=== PATIENT | male | born 1975 | race Caucasian/White ===

== ENCOUNTER 2016-04-17 09:37 | Emergency (ER) | payer OTHER ==
[~2016-04-17 09:37] MED LIST: NEXI40CA PO; QUES4POW PO; VARE1TA PO
[2016-04-17] MEDS ORDERED: NORCO, ANEXSIA 5/325MG TABLET (HYDROcodone/ACETAMINOPHEN) As Ordered ONE (10:10)
--- NOTE | 2016-04-17 11:11 | REP ---
LUMBAR SPINE COMPLETE: 04/17/2016. Comparison: 08/24/2010. Clinical history: Trauma. The five views show pedicles, spinous and transverse processes in the lumbar spine intact. Sacral ala, foramina, SI joints, pelvic rim and visualized portions of the pubic symphysis and rami were intact. Hips only seen in part and symmetric. Lower thoracic levels and visualized ribs intact. The lateral view shows slight loss of lordosis that may reflect some spasm. The disc space heights are intact throughout. There is no compression deformity. There are small marginal osteophytes at L2-3 and L3-4 as well as in the lower thoracic region. No destructive bone lesion, spondylolysis or spondylolisthesis. Impression: 1. Minimal straightening of the spine that may reflect some spasm with small marginal osteophytes in the mid and upper lumbar region. No compression fracture, spondylolysis, spondylolisthesis or other acute finding. Signed by John Mendes MD 04/17/2016 04:21 P
--- NOTE | 2016-04-17 11:12 | REP ---
AP PELVIS AND LEFT HIP, TWO VIEWS: 04/17/2016. Clinical history: Trauma. Fell downstairs with back and left hip pain. No prior study. Findings: SI joints, sacral ala and foramina symmetric and normal. Iliac wings intact. Hip joint space is preserved. I do not see significant degenerative changes of the hips. There is no AVN or fracture of either hip. Pelvic ring intact. SI joints, symphysis pubis, pubic rami all unremarkable. The AP and frog-leg views of the hip show no hip joint space narrowing, osteophytes or destructive lesion. Impression: 1. Negative AP pelvis and left hip series. Signed by John Mendes MD 04/17/2016 04:21 P
--- NOTE | 2016-04-17 12:05 | EDDOCDS ---
Nurse's Notes [facility] Name: Aleksander Lopez Age: 40 yrs Sex: Male : 1975 Arrival Date: 04/17/2016 Time: 09:37 Bed PR Private MD: Con Nash MD Diagnosis: Fall on and from stairs and steps;Contusion of lower back and pelvis-left Presentation: 04/17 09:44 Presenting complaint: Patient states: "I fell down the stairs outside." Spouse reports ead approx 5 stairs. Pt unsure if he hit his head. Pt c/o lower back pain and left leg pain. Adult Sepsis Screening: The patient does not have new or worsening altered mentation. Patient's respiratory rate is less than 22. Systolic blood pressure is greater than 100. Patient has a qSOFA score of 0- Negative Sepsis Screen. Suicide/Homicide risk assessment- the patient denies having any suicidal and/or homicidal ideations and does not present with any other emotional, behavioral or mental health complaints. 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 Transition of care: patient was not received from another setting of care. 09:44 Acuity: DAMIEN Level 4 ead 09:44 Method Of Arrival: Wheelchair ead 09:47 Presenting complaint: states: reports incident occurred at approx 0800 this ead morning. Triage Assessment: 09:46 General: Appears in no apparent distress, Behavior is appropriate for age, cooperative. ead General: Appears uncomfortable. Pain: Location: back and left leg. Pain: Pain currently is 10 out of 10 on a pain scale. HIV screening NA for this visit Offered previously. Neurological: Level of Consciousness is awake, alert, obeys commands, Oriented to person, place, time. Respiratory: Airway is patent Respiratory effort is even, unlabored. Derm: Skin is pink, warm & dry. Musculoskeletal: Reports pain in back and left leg. Historical: - Allergies: Codeine Sulfate (Upset stomach); - Home Meds: 1. cholestyramine (with sugar) 4 gram oral powd 1 scoop daily - PMHx: Hiatal Hernia; - PSHx: Cholecystectomy; Appendectomy; - Social history: Smoking status: Patient uses tobacco products, current every day smoker. No barriers to communication noted, The patient speaks fluent Vietnamese, Speaks appropriately for age. - Family history: Not pertinent. - : The pt / caregiver states he / she is not on anticoagulants. Home medication list is obtained from the patient. - Exposure Risk Screening:: None identified. Screenin:16 Screening information is obtained from the patient. Fall risk: No risks identified. jjr Assistance ADL's: requires no assistance with activities of daily living. Abuse/DV Screen: The patient / caregiver reports he/she is: not in a situation that causes fear, pain or injury. Nutritional screening: No deficits noted. Advance Directives: There is no active DNR order. home support is adequate. Assessment: 10:15 General: Appears uncomfortable, Behavior is appropriate for age. Pain: Location: lumbar jjr area, sacrum and left hip Pain radiates to left femoral area Aggravated by increased activity, repositioning, Noted to be grimacing, resistant to movement. Neurological: No deficits noted. Respiratory: No deficits noted. Derm: No deficits noted. 12:02 General: Appears in no apparent distress, Behavior is appropriate for age, cooperative. ml6 Pain: Location: lumbar area Pain currently is 3 out of 10 on a pain scale. Pain does not radiate. Quality of pain is described as aching, Pain began 1 day ago Is continuous Alleviated by medications, rest, Aggravated by increased activity. Neurological: No deficits noted. Cardiovascular: No deficits noted. Capillary refill < 3 seconds is brisk in bilateral fingers toes. Respiratory: No deficits noted. Airway is patent Respiratory effort is even, unlabored, Respiratory pattern is regular, symmetrical, Breath sounds are clear bilaterally. GI: No deficits noted. Vital Signs: 09:38 BP 128 / 70; Pulse 93; Resp 18; Temp 97.5(O); Pulse Ox 99% on R/A; Weight 86.18 kg (R); dem1 Height 5 ft. 8 in. (172.72 cm) (R); Pain 10/10; 12:03 BP 140 / 89; Pulse 78; Resp 18; Temp 97.7(O); Pulse Ox 97% on R/A; Pain 3/10; ml6 09:38 Body Mass Index 28.89 (86.18 kg, 172.72 cm) dem1 12:03 provider aware of patients pain ml6 Vitals: 09:38 Log In Time: April 17, 2016 at 09:36. dem1 ED Course: 09:38 Patient visited by Shahla Paulino. dem1 09:38 Con Nash is Private Physician. dem1 09:38 Patient moved to Waiting dem1 09:39 Patient moved to Pre RCE dem1 09:45 Triage Initiated ead 09:58 Patient moved to Triage 3 ead 09:59 Abilio Beltran PA-C is PHCP. ar2 09:59 Amirah Devine MD is Attending Physician. ar2 09:59 Patient visited by Abilio Beltran PA-C. ar2 10:15 Patient moved to TR1 jjr 10:16 Patient visited by Shayna Donahue RN. jjr 10:16 The patient / caregiver is instructed regarding the plan of care and ED course. jjr 10:27 [facility] Payment Agreement was scanned into [employer] and attached to record. jp5 11:07 Patient moved to PR1 / 25 jlf 11:12 Patient visited by Kate France PCA. ar3 11:21 Spine. Lumbosacral, Complete Returned. EDMS 11:21 Hip,AP,LAT to include Pelvis Returned. EDMS 11:47 Con Nash is Referral Physician. ar2 12:03 No IV's were initiated during this patient's visit. No procedures done that require ml6 assistance. Administered Medications: 10:15 Drug: HYDROcodone-acetaminophen 1 tabs [hydrocodone 5 mg-acetaminophen 325 mg tablet (1 jjr tabs)] Route: PO; Order Results: Radiology Order: Spine. Lumbosacral, Complete Test: Spine. Lumbosacral, Complete REASON FOR EXAMINATION: Trauma; Lumbar spine complete: 04/17/2016:; ; Comparison: 08/24/2010.; ; Clinical history: Trauma.; ; The five views show pedicles, spinous and transverse processes in the lumbar; spine intact. Sacral ala, foramina, SI joints, pelvic rim and visualized; portions of the pubic symphysis and rami were intact. Hips only seen in part and; symmetric. Lower thoracic levels and visualized ribs intact. The lateral view; shows slight loss of lordosis that may reflect some spasm. The disc space; heights are intact throughout. There is no compression deformity. There are; small marginal osteophytes at L2-3 and L3-4 as well as in the lower thoracic; region. No destructive bone lesion, spondylolysis or spondylolisthesis.; ; Impression:; 1. Minimal straightening of the spine that may reflect some spasm with small; marginal osteophytes in the mid and upper lumbar region. No compression; fracture, spondylolysis, spondylolisthesis or other acute finding.; ; ; ; ; Unreviewed; Radiology Order: Hip,AP,LAT to include Pelvis Test: Hip,AP,LAT to include Pelvis REASON FOR EXAMINATION: Trauma; AP PELVIS AND LEFT HIP, TWO VIEWS: 04/17/2016.; ; Clinical history: Trauma. Fell downstairs with back and left hip pain.; ; No prior study.; ; Findings: SI joints, sacral ala and foramina symmetric and normal. Iliac wings; intact. Hip joint space is preserved. I do not see significant degenerative; changes of the hips. There is no AVN or fracture of either hip. Pelvic ring; intact. SI joints, symphysis pubis, pubic rami all unremarkable. The AP and; frog-leg views of the hip show no hip joint space narrowing, osteophytes or; destructive lesion.; ; Impression:; 1. Negative AP pelvis and left hip series.; ; ; ; ; ; ; Unreviewed; Outcome: 11:48 Discharge ordered by Provider. ar2 12:03 Discharge Assessment: patient administered narcotics - no. The following High Risk ml6 Discharge criteria are identified: None. Discharged to home ambulatory, with significant other. Condition: stable. Discharge instructions given to patient, Instructed on discharge instructions, follow up and referral plans. medication usage, Demonstrated understanding of instructions, medications, Pt was receptive of discharge instructions/ teaching. Prescriptions given X 2. No special radiology studies were completed. Property :Personal belongings accompany Pt. 12:04 Patient left the ED. ml6 Signatures: Dispatcher [employer] EDMS Shayna Donahue RN RN Abilio Mcgee PA-C PA-C ar2 Dung Da Silva RN RN ml6 Kate France, [employer]IAN ar3 Shahla Paulino dem1 Latoya Graff, [employer] duyf Amelia ScottRN RN Chanda Buitrago jp5 Corrections: (The following items were deleted from the chart) 12:03 11:12 BP 140 / 89; Pulse 78bpm; Resp 18bpm; Pulse Ox 97% RA; Temp 97.7F Oral; Pain ml6 10/10; provider aware of patients pain; ar3 12:03 12:03 BP 140 / 89; Pulse 78bpm; Resp 18bpm; Pulse Ox 97% RA; Temp 97.7F Oral; Pain ml6 10/10; provider aware of patients pain; ml6 MTDD
--- NOTE | 2016-04-17 12:05 | EDDOCDS ---
Physician Documentation [facility] Name: Aleksander Lopez Age: 40 yrs Sex: Male : 1975 Arrival Date: 04/17/2016 Time: 09:37 Bed PR Private MD: Con Nash MD Disposition: 04/17/16 11:48 Discharged to Home/Self Care. Impression: Fall on and from stairs and steps, Contusion of lower back and pelvis - left. - Condition is Stable. - Discharge Instructions: Back Pain, Adult, Contusion. - Prescriptions for Ibuprofen 800 mg Oral Tablet - take 1 tablet by ORAL route every 8 hours As needed take with food; 30 tablet. Ultram 50 mg Oral Tablet - take 1 tablet by ORAL route every 6 hours As needed MDD: 4 tabs; 20 tablet. - Work Release Form - 3 day, Medication Reconciliation, Local Pharmacy Hours form. - Follow up: Con Nash; When: 1 week; Reason: Recheck today's complaints. Follow up: Emergency Department; When: As needed; Reason: Worsening of conditions, severe pain, numbness/weakness in the legs. - Problem is new. - Symptoms are unchanged. Historical: - Allergies: Codeine Sulfate (Upset stomach); - Home Meds: 1. cholestyramine (with sugar) 4 gram oral powd 1 scoop daily - PMHx: Hiatal Hernia; - PSHx: Cholecystectomy; Appendectomy; - Social history: Smoking status: Patient uses tobacco products, current every day smoker. No barriers to communication noted, The patient speaks fluent Hebrew, Speaks appropriately for age. - Family history: Not pertinent. - : The pt / caregiver states he / she is not on anticoagulants. Home medication list is obtained from the patient. - Exposure Risk Screening:: None identified. Vital Signs: 04/17 09:38 BP 128 / 70; Pulse 93; Resp 18; Temp 97.5(O); Pulse Ox 99% on R/A; Weight 86.18 kg / dem1 189.99 lbs (R); Height 5 ft. 8 in. (172.72 cm) (R); Pain 10/10; 12:03 BP 140 / 89; Pulse 78; Resp 18; Temp 97.7(O); Pulse Ox 97% on R/A; Pain 3/10; ml6 09:38 Body Mass Index 28.89 (86.18 kg, 172.72 cm) dem1 12:03 provider aware of patients pain ml6 MDM: 10:06 HYDROcodone-acetaminophen 5 mg-325 mg 1 tabs PO once ordered. ar2 10:07 Spine. Lumbosacral, Complete Ordered. EDMS 10:07 Hip,AP,LAT to include Pelvis Ordered. EDMS 10:27 [facility] Payment Agreement was scanned into [employer] and attached to record. jp5 10:27 Financial registration complete. jp5 Administered Medications: 10:15 Drug: HYDROcodone-acetaminophen 1 tabs [hydrocodone 5 mg-acetaminophen 325 mg tablet (1 jjr tabs)] Route: PO; Signatures: Dispatcher [employer] EDMS Abilio Beltran PA-C PA-C ar2 Dung Da Silva RN RN ml6 Amelia ScottRN RN Chanda Buitrago jp5 Shayna Donahue RN jjr The chart was reviewed and I authenticate all verbal orders and agree with the evaluation and treatment provided.Attachments: 10:27 [facility] Payment Agreement jp5 MTDD
--- NOTE | 2016-04-19 13:04 | EDDOCDS ---
Physician Documentation [facility] Name: Aleksander Lopez Age: 40 yrs Sex: Male : 1975 Arrival Date: 04/17/2016 Time: 09:37 Bed PR Private MD: Con Nash MD Disposition: 04/17/16 11:48 Discharged to Home/Self Care. Impression: Fall on and from stairs and steps, Contusion of lower back and pelvis - left. - Condition is Stable. - Discharge Instructions: Back Pain, Adult, Contusion. - Prescriptions for Ibuprofen 800 mg Oral Tablet - take 1 tablet by ORAL route every 8 hours As needed take with food; 30 tablet. Ultram 50 mg Oral Tablet - take 1 tablet by ORAL route every 6 hours As needed MDD: 4 tabs; 20 tablet. - Work Release Form - 3 day, Medication Reconciliation, Local Pharmacy Hours form. - Follow up: Con Nash; When: 1 week; Reason: Recheck today's complaints. Follow up: Emergency Department; When: As needed; Reason: Worsening of conditions, severe pain, numbness/weakness in the legs. - Problem is new. - Symptoms are unchanged. Historical: - Allergies: Codeine Sulfate (Upset stomach); - Home Meds: 1. cholestyramine (with sugar) 4 gram oral powd 1 scoop daily - PMHx: Hiatal Hernia; - PSHx: Cholecystectomy; Appendectomy; - Social history: Smoking status: Patient uses tobacco products, current every day smoker. No barriers to communication noted, The patient speaks fluent Mohawk, Speaks appropriately for age. - Family history: Not pertinent. - : The pt / caregiver states he / she is not on anticoagulants. Home medication list is obtained from the patient. - Exposure Risk Screening:: None identified. Vital Signs: 04/17 09:38 BP 128 / 70; Pulse 93; Resp 18; Temp 97.5(O); Pulse Ox 99% on R/A; Weight 86.18 kg / dem1 189.99 lbs (R); Height 5 ft. 8 in. (172.72 cm) (R); Pain 10/10; 12:03 BP 140 / 89; Pulse 78; Resp 18; Temp 97.7(O); Pulse Ox 97% on R/A; Pain 3/10; ml6 09:38 Body Mass Index 28.89 (86.18 kg, 172.72 cm) dem1 12:03 provider aware of patients pain ml6 MDM: 10:06 HYDROcodone-acetaminophen 5 mg-325 mg 1 tabs PO once ordered. ar2 10:07 Spine. Lumbosacral, Complete Ordered. EDMS 10:07 Hip,AP,LAT to include Pelvis Ordered. EDMS 10:27 [facility] Payment Agreement was scanned into [employer] and attached to record. jp5 10: Financial registration complete. jp5 14:00 T-Sheet-- Draft Copy was scanned into [employer] and attached to record. klr 14:35 Radiology Report was scanned into [employer] and attached to record. gb Administered Medications: 10:15 Drug: HYDROcodone-acetaminophen 1 tabs [hydrocodone 5 mg-acetaminophen 325 mg tablet (1 jjr tabs)] Route: PO; Signatures: Dispatcher [employer] EDMS Daphnie Hadley, Reg Reg gb Abilio Beltran, PA-C PA-C ar2 Dung Da Silva, RN RN ml6 Amelia ScottRN RN Chanda Buitrago jp5 Koki Rubin klr Shayna Donahue RN jjr The chart was reviewed and I authenticate all verbal orders and agree with the evaluation and treatment provided.Attachments: 10: [facility] Payment Agreement jp5 14:00 T-Sheet-- Draft Copy klr Chart Complete MTDD
--- NOTE | 2016-04-19 13:04 | EDDOCDS ---
Physician Documentation [facility] Name: Aleksander Lopez Age: 40 yrs Sex: Male : 1975 Arrival Date: 04/17/2016 Time: 09:37 Bed PR Private MD: Con Nash MD Disposition: 04/17/16 11:48 Discharged to Home/Self Care. Impression: Fall on and from stairs and steps, Contusion of lower back and pelvis - left. - Condition is Stable. - Discharge Instructions: Back Pain, Adult, Contusion. - Prescriptions for Ibuprofen 800 mg Oral Tablet - take 1 tablet by ORAL route every 8 hours As needed take with food; 30 tablet. Ultram 50 mg Oral Tablet - take 1 tablet by ORAL route every 6 hours As needed MDD: 4 tabs; 20 tablet. - Work Release Form - 3 day, Medication Reconciliation, Local Pharmacy Hours form. - Follow up: Con Nash; When: 1 week; Reason: Recheck today's complaints. Follow up: Emergency Department; When: As needed; Reason: Worsening of conditions, severe pain, numbness/weakness in the legs. - Problem is new. - Symptoms are unchanged. Historical: - Allergies: Codeine Sulfate (Upset stomach); - Home Meds: 1. cholestyramine (with sugar) 4 gram oral powd 1 scoop daily - PMHx: Hiatal Hernia; - PSHx: Cholecystectomy; Appendectomy; - Social history: Smoking status: Patient uses tobacco products, current every day smoker. No barriers to communication noted, The patient speaks fluent Nepali, Speaks appropriately for age. - Family history: Not pertinent. - : The pt / caregiver states he / she is not on anticoagulants. Home medication list is obtained from the patient. - Exposure Risk Screening:: None identified. Vital Signs: 04/17 09:38 BP 128 / 70; Pulse 93; Resp 18; Temp 97.5(O); Pulse Ox 99% on R/A; Weight 86.18 kg / dem1 189.99 lbs (R); Height 5 ft. 8 in. (172.72 cm) (R); Pain 10/10; 12:03 BP 140 / 89; Pulse 78; Resp 18; Temp 97.7(O); Pulse Ox 97% on R/A; Pain 3/10; ml6 09:38 Body Mass Index 28.89 (86.18 kg, 172.72 cm) dem1 12:03 provider aware of patients pain ml6 MDM: 10:06 HYDROcodone-acetaminophen 5 mg-325 mg 1 tabs PO once ordered. ar2 10:07 Spine. Lumbosacral, Complete Ordered. EDMS 10:07 Hip,AP,LAT to include Pelvis Ordered. EDMS 10:27 [facility] Payment Agreement was scanned into [employer] and attached to record. jp5 10: Financial registration complete. jp5 14:00 T-Sheet-- Draft Copy was scanned into [employer] and attached to record. klr 14:35 Radiology Report was scanned into [employer] and attached to record. gb Administered Medications: 10:15 Drug: HYDROcodone-acetaminophen 1 tabs [hydrocodone 5 mg-acetaminophen 325 mg tablet (1 jjr tabs)] Route: PO; Signatures: Dispatcher [employer] EDMS Daphnie Hadley, Reg Reg gb Abilio Beltran, PA-C PA-C ar2 Dung Da Silva, RN RN ml6 Amelia ScottRN RN Chanda Buitrago jp5 Koki Rubin klr Shayna Donahue RN jjr The chart was reviewed and I authenticate all verbal orders and agree with the evaluation and treatment provided.Attachments: 10: [facility] Payment Agreement jp5 14:00 T-Sheet-- Draft Copy klr Chart Complete MTDD
--- NOTE | 2016-04-19 13:04 | EDDOCDS ---
Nurse's Notes [facility] Name: Aleksander Lopez Age: 40 yrs Sex: Male : 1975 Arrival Date: 04/17/2016 Time: 09:37 Bed PR Private MD: Con Nash MD Diagnosis: Fall on and from stairs and steps;Contusion of lower back and pelvis-left Presentation: 04/17 09:44 Presenting complaint: Patient states: "I fell down the stairs outside." Spouse reports ead approx 5 stairs. Pt unsure if he hit his head. Pt c/o lower back pain and left leg pain. Adult Sepsis Screening: The patient does not have new or worsening altered mentation. Patient's respiratory rate is less than 22. Systolic blood pressure is greater than 100. Patient has a qSOFA score of 0- Negative Sepsis Screen. Suicide/Homicide risk assessment- the patient denies having any suicidal and/or homicidal ideations and does not present with any other emotional, behavioral or mental health complaints. 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 Transition of care: patient was not received from another setting of care. 09:44 Acuity: DAMIEN Level 4 ead 09:44 Method Of Arrival: Wheelchair ead 09:47 Presenting complaint: states: reports incident occurred at approx 0800 this ead morning. Triage Assessment: 09:46 General: Appears in no apparent distress, Behavior is appropriate for age, cooperative. ead General: Appears uncomfortable. Pain: Location: back and left leg. Pain: Pain currently is 10 out of 10 on a pain scale. HIV screening NA for this visit Offered previously. Neurological: Level of Consciousness is awake, alert, obeys commands, Oriented to person, place, time. Respiratory: Airway is patent Respiratory effort is even, unlabored. Derm: Skin is pink, warm & dry. Musculoskeletal: Reports pain in back and left leg. Historical: - Allergies: Codeine Sulfate (Upset stomach); - Home Meds: 1. cholestyramine (with sugar) 4 gram oral powd 1 scoop daily - PMHx: Hiatal Hernia; - PSHx: Cholecystectomy; Appendectomy; - Social history: Smoking status: Patient uses tobacco products, current every day smoker. No barriers to communication noted, The patient speaks fluent Kinyarwanda, Speaks appropriately for age. - Family history: Not pertinent. - : The pt / caregiver states he / she is not on anticoagulants. Home medication list is obtained from the patient. - Exposure Risk Screening:: None identified. Screenin:16 Screening information is obtained from the patient. Fall risk: No risks identified. jjr Assistance ADL's: requires no assistance with activities of daily living. Abuse/DV Screen: The patient / caregiver reports he/she is: not in a situation that causes fear, pain or injury. Nutritional screening: No deficits noted. Advance Directives: There is no active DNR order. home support is adequate. Assessment: 10:15 General: Appears uncomfortable, Behavior is appropriate for age. Pain: Location: lumbar jjr area, sacrum and left hip Pain radiates to left femoral area Aggravated by increased activity, repositioning, Noted to be grimacing, resistant to movement. Neurological: No deficits noted. Respiratory: No deficits noted. Derm: No deficits noted. 12:02 General: Appears in no apparent distress, Behavior is appropriate for age, cooperative. ml6 Pain: Location: lumbar area Pain currently is 3 out of 10 on a pain scale. Pain does not radiate. Quality of pain is described as aching, Pain began 1 day ago Is continuous Alleviated by medications, rest, Aggravated by increased activity. Neurological: No deficits noted. Cardiovascular: No deficits noted. Capillary refill < 3 seconds is brisk in bilateral fingers toes. Respiratory: No deficits noted. Airway is patent Respiratory effort is even, unlabored, Respiratory pattern is regular, symmetrical, Breath sounds are clear bilaterally. GI: No deficits noted. Vital Signs: 09:38 BP 128 / 70; Pulse 93; Resp 18; Temp 97.5(O); Pulse Ox 99% on R/A; Weight 86.18 kg (R); dem1 Height 5 ft. 8 in. (172.72 cm) (R); Pain 10/10; 12:03 BP 140 / 89; Pulse 78; Resp 18; Temp 97.7(O); Pulse Ox 97% on R/A; Pain 3/10; ml6 09:38 Body Mass Index 28.89 (86.18 kg, 172.72 cm) dem1 12:03 provider aware of patients pain ml6 Vitals: 09:38 Log In Time: April 17, 2016 at 09:36. dem1 ED Course: 09:38 Patient visited by Shahla Paulino. dem1 09:38 Con Nash is Private Physician. dem1 09:38 Patient moved to Waiting dem1 09:39 Patient moved to Pre RCE dem1 09:45 Triage Initiated ead 09:58 Patient moved to Triage 3 ead 09:59 Abilio Beltran PA-C is PHCP. ar2 09:59 Amirah Devine MD is Attending Physician. ar2 09:59 Patient visited by Abilio Beltran PA-C. ar2 10:15 Patient moved to TR1 jjr 10:16 Patient visited by Shayna Donahue RN. jjr 10:16 The patient / caregiver is instructed regarding the plan of care and ED course. jjr 10:27 [facility] Payment Agreement was scanned into Tile and attached to record. jp5 11:07 Patient moved to PR1 / 25 jlf 11:12 Patient visited by Kate France PCA. ar3 11:21 Spine. Lumbosacral, Complete Returned. EDMS 11:21 Hip,AP,LAT to include Pelvis Returned. EDMS 11:47 Con Nash is Referral Physician. ar2 12:03 No IV's were initiated during this patient's visit. No procedures done that require ml6 assistance. 14:00 T-Sheet-- Draft Copy was scanned into Tile and attached to record. klr 14:35 Radiology Report was scanned into Tile and attached to record. gb Administered Medications: 10:15 Drug: HYDROcodone-acetaminophen 1 tabs [hydrocodone 5 mg-acetaminophen 325 mg tablet (1 jjr tabs)] Route: PO; Order Results: Radiology Order: Spine. Lumbosacral, Complete Test: Spine. Lumbosacral, Complete REASON FOR EXAMINATION: Trauma; LUMBAR SPINE COMPLETE: 04/17/2016.; ; Comparison: 08/24/2010.; ; Clinical history: Trauma.; ; The five views show pedicles, spinous and transverse processes in the lumbar; spine intact. Sacral ala, foramina, SI joints, pelvic rim and visualized; portions of the pubic symphysis and rami were intact. Hips only seen in part and; symmetric. Lower thoracic levels and visualized ribs intact. The lateral view; shows slight loss of lordosis that may reflect some spasm. The disc space; heights are intact throughout. There is no compression deformity. There are; small marginal osteophytes at L2-3 and L3-4 as well as in the lower thoracic; region. No destructive bone lesion, spondylolysis or spondylolisthesis.; ; Impression:; ; 1. Minimal straightening of the spine that may reflect some spasm with small; marginal osteophytes in the mid and upper lumbar region. No compression; fracture, spondylolysis, spondylolisthesis or other acute finding.; ; ; Signed by; John Mendes MD 04/17/2016 04:21 P; Radiology Order: Hip,AP,LAT to include Pelvis Test: Hip,AP,LAT to include Pelvis REASON FOR EXAMINATION: Trauma; AP PELVIS AND LEFT HIP, TWO VIEWS: 04/17/2016.; ; Clinical history: Trauma. Fell downstairs with back and left hip pain.; ; No prior study.; ; Findings: SI joints, sacral ala and foramina symmetric and normal. Iliac wings; intact. Hip joint space is preserved. I do not see significant degenerative; changes of the hips. There is no AVN or fracture of either hip. Pelvic ring; intact. SI joints, symphysis pubis, pubic rami all unremarkable. The AP and; frog-leg views of the hip show no hip joint space narrowing, osteophytes or; destructive lesion.; ; Impression:; ; 1. Negative AP pelvis and left hip series.; ; ; ; ; Signed by; John Mendes MD 04/17/2016 04:21 P; Outcome: 11:48 Discharge ordered by Provider. ar2 12:03 Discharge Assessment: patient administered narcotics - no. The following High Risk ml6 Discharge criteria are identified: None. Discharged to home ambulatory, with significant other. Condition: stable. Discharge instructions given to patient, Instructed on discharge instructions, follow up and referral plans. medication usage, Demonstrated understanding of instructions, medications, Pt was receptive of discharge instructions/ teaching. Prescriptions given X 2. No special radiology studies were completed. Property :Personal belongings accompany Pt. 12:04 Patient left the ED. ml6 Signatures: Dispatcher [employer] EDMS Daphnie Hadley, Reg Reg Shayna Carlson RN RN jjAbilio Davenport PA-C PARamiro ar2 Dung Da Silav RN RN ml6 Kate France, PROFESSOR OF COMMUNICATION AND WRITING PROFESSOR OF COMMUNICATION AND WRITING ar3 Shahla Paulino dem1 Latoya Graff, PROFESSOR OF COMMUNICATION AND WRITING PROFESSOR OF COMMUNICATION AND WRITING jlf Amelia Scott,RN RN Chanda Buitrago 5 Koki Rubin Corrections: (The following items were deleted from the chart) 12:03 11:12 BP 140 / 89; Pulse 78bpm; Resp 18bpm; Pulse Ox 97% RA; Temp 97.7F Oral; Pain ml6 10/10; provider aware of patients pain; ar3 12:03 12:03 BP 140 / 89; Pulse 78bpm; Resp 18bpm; Pulse Ox 97% RA; Temp 97.7F Oral; Pain ml6 10/10; provider aware of patients pain; ml6 Chart Complete MTDD
== END 2016-04-17 12:04 | disposition home or self-care (01) ==
LOC: M ED 09:37
DX: S30.0XXA Contusion of lower back and pelvis, initial encounter (principal); W10.9XXA Fall (on) (from) unspecified stairs and steps, initial encounter; Y92.019 Unspecified place in single-family (private) house as the place of occurrence of the external cause; Y93.9 Activity, unspecified; Y99.9 Unspecified external cause status; K44.9 Diaphragmatic hernia without obstruction or gangrene; Z72.0 Tobacco use; Z79.899 Other long term (current) drug therapy; Z88.5 Allergy status to narcotic agent

== ENCOUNTER 2018-05-12 11:11 | Emergency (ER) | payer OTHER ==
[~2018-05-12] VITALS: Ht 172.7 cm; Wt 95.5 kg
[2018-05-12 11:12] VITALS: BP 132/82
[2018-05-12] MEDS ORDERED: LEVO500T3 PO (11:20)
[2018-05-12] MEDS ORDERED: DICL75TA PO (11:20)
[2018-05-12] MEDS ORDERED: NORCOTAB PO (11:55)
== END 2018-05-12 12:08 | disposition home or self-care (01) ==
LOC: M ED 11:11
DX: L02.215 Cutaneous abscess of perineum (principal); Z88.5 Allergy status to narcotic agent; Z79.2 Long term (current) use of antibiotics; Z79.899 Other long term (current) drug therapy

== ENCOUNTER → 2018-06-07 | Outpatient (CLI) | payer OTHER ==
[~2018-06-07] MED LIST changes: +DICL75TA PO; +LEVO500T3 PO; +NORCOTAB PO
--- NOTE | 2018-06-07 13:42 | REP ---
MAXILLOFACIAL CT WITHOUT CONTRAST: HISTORY: Left ear pain. COMPARISON: 06/24/2009. The right frontal sinus is hypoplastic. Minimal mucosal thickening is present in the left ethmoid sinus. The remaining sinuses are clear. The ostiomeatal units are patent. The middle and inferior nasal turbinates are partially paradoxical. There is very minimal deviation of the nasal septum to the left. A spur is present arising from the left side of the nasal septum. The cribriform plate, medial bryant of the orbits and optic canals are intact. The carotid canals form a segment of the posterolateral bryant of the sphenoid sinus. The sphenoid sinus septum inserts into the left internal carotid canal wall. IMPRESSION: Sinus mucosal thickening as described above. Electronically Signed by Prudencio De La Rosa MD 06/07/2018 01:52 P
== END ==
LOC: M RAD 10:27
PROVIDERS: ATTEND Otolaryngology
DX: H69.91 Unspecified Eustachian tube disorder, right ear (principal); J34.2 Deviated nasal septum; J32.2 Chronic ethmoidal sinusitis

== ENCOUNTER → 2018-08-26 | Outpatient (CLI) | payer OTHER ==
[~2018-08-26] MED LIST changes: +HYDR-3715 PO; -NORCOTAB PO; +PROHANCE 279.3MG/ML 15ML VIAL (A9576) As Ordered ONE; +PROHANCE 279.3MG/ML 5ML VIAL (A9576) As Ordered ONE
--- NOTE | 2018-08-27 02:18 | REP ---
MRI BRAIN AND INTERNAL AUDITORY CANALS WITHOUT AND WITH IV CONTRAST: History: Asymmetric sensorineural hearing loss, worse in the left ear. Rule out retrocochlear pathology. Gadolinium enhancement dose: 18 mL of intravenous ProHance. MR technique: Axial and coronal imaging planes were utilized. T1- and T2-weighted sequences include spin-echo, fast spin-echo, FLAIR, diffusion-weighted scans and postcontrast images. The study includes thin-section T1- and T2-weighted scans through the temporal bones. MRI findings: Bony calvarium is intact. No intraorbital abnormality is seen. There is no MR evidence of significant paranasal sinus disease. Internal auditory canals are normal and symmetric. Seventh and eighth nerves are unremarkable. There is no evidence of CP angle cistern mass lesion. Postcontrast images show no evidence of intracanalicular or extracanalicular abnormal enhancement. Vargas-white differentiation pattern is normal above and below the tentorium. No extra-axial fluid collection is seen. No abnormal gadolinium enhancement is appreciated. IMPRESSION: Normal brain and internal auditory canal MRI study without and with IV contrast. Electronically Signed by Femi Lin MD 08/27/2018 08:33 A
== END ==
LOC: M RAD 14:14
PROVIDERS: ATTEND Otolaryngology
DX: H90.3 Sensorineural hearing loss, bilateral (principal)
CPT/HCPCS: 70553; A9576